=== PATIENT | female | born 1950 | race Caucasian/White ===

== ENCOUNTER 2018-01-30 13:12 | Emergency (ER) | payer MEDICARE, MEDICAID ==
[2018-01-30 14:01] LABS: #Lymphocytes 1.5 thou/uL (1.20-3.40); #Monocytes 0.7 thou/uL (0.11-0.59); #Neutrophils 5.2 thou/uL (1.40-6.50); %Basophils 0.4 % (0.0-1.0); %Eosinophils 0.5 % (0.0-10.0); %Lymphocytes 20.6 % (21.0-51.0); %Monocytes 8.8 % (0.0-10.0); %Neutrophils 69.8 % (42.0-75.0); Hemoglobin 12.8 g/dL (12.0-16.0); Mean Corpuscular HGB CONC 33.8 g/dL (32.0-36.0); Mean Corpuscular Hemoglobin 31.5 pg (27.0-31.0); Mean Corpuscular Volume 93.2 fL (78.0-98.0); Mean Platelet Volume 7.7 fL (7.4-10.4); Platelet Count 252 thou/uL (130-400); RBC Distribution Width 12.1 % (11.5-14.5); Red Blood Cell (RBC) Count 4.06 mill/uL (4.20-5.40); White Blood Cell (WBC) Count 7.4 thou/uL (4.8-10.8)
[2018-01-30 14:23] LABS: ALT (SGPT) 32 U/L (8-55); AST (SGOT) 30 U/L (5-34); Albumin 4.4 g/dL (3.4-4.8); Alkaline Phosphatase 109 U/L (40-150); Anion Gap 14 mmol/L (10-20); BUN (Urea Nitrogen) 9 mg/dL (9.8-20.1); Bilirubin, Total 0.6 mg/dL (0.2-1.2); Calc. Creatinine Clearance 0 mL/min (70-130); Calcium 9.9 mg/dL (7.8-10.44); Carbon Dioxide 31 mmol/L (23-31); Chloride 91 mmol/L (98-107); Estimated GFR-MDRD 70; Globulin 3.5 g/dL (2.4-3.5); Glucose 89 mg/dL (80-115); Protein, Total 7.9 g/dL (6.0-8.3); Sodium 133 mmol/L (136-145)
[2018-01-30 14:27] LABS: CKMB 0.5 ng/mL (0-6.6); Troponin I Less than 0.010 ng/mL (< 0.028)
[2018-01-30] MEDS ORDERED: Potassium Chloride 20 MEQ TAB ONE (15:11)
== END 2018-01-30 15:15 | disposition home or self-care (01) ==
LOC: ERS 13:12
DX: I10 Essential (primary) hypertension (principal); E78.5 Hyperlipidemia, unspecified; M10.9 Gout, unspecified; Z79.899 Other long term (current) drug therapy; Z79.82 Long term (current) use of aspirin
CPT/HCPCS: 80053; 82553; 84484; 85025; 93005

== ENCOUNTER 2018-03-30 00:25 | Observation (INO) | payer MEDICARE, MEDICAID ==
[2018-03-30] MEDS ORDERED: Bacitracin Zinc 1 Packet ONE (00:48)
[2018-03-30 01:18] LABS: #Basophils 0.1 thou/uL (0.0-0.2); #Eosinphils 0.1 thou/uL (0.0-0.7); #Lymphocytes 1.7 thou/uL (1.20-3.40); #Monocytes 0.8 thou/uL (0.11-0.59); #Neutrophils 6.6 thou/uL (1.40-6.50); %Basophils 1.4 % (0.0-1.0); %Eosinophils 0.7 % (0.0-10.0); %Lymphocytes 18.6 % (21.0-51.0); %Monocytes 8.3 % (0.0-10.0); Hemoglobin 12.3 g/dL (12.0-16.0); Mean Corpuscular HGB CONC 33.9 g/dL (32.0-36.0); Mean Corpuscular Hemoglobin 32.6 pg (27.0-31.0); Mean Platelet Volume 7.4 fL (7.4-10.4); Platelet Count 255 thou/uL (130-400); Red Blood Cell (RBC) Count 3.77 mill/uL (4.20-5.40); White Blood Cell (WBC) Count 9.3 thou/uL (4.8-10.8)
[2018-03-30 01:40] LABS: ALT (SGPT) 19 U/L (8-55); AST (SGOT) 17 U/L (5-34); Alkaline Phosphatase 96 U/L (40-150); Anion Gap 15 mmol/L (10-20); BUN (Urea Nitrogen) 23 mg/dL (9.8-20.1); Bilirubin, Total 0.4 mg/dL (0.2-1.2); CK (CPK) 54 U/L (29-168); Calc. Creatinine Clearance 0 mL/min (70-130); Calcium 9.2 mg/dL (7.8-10.44); Carbon Dioxide 26 mmol/L (23-31); Chloride 93 mmol/L (98-107); Estimated GFR-MDRD 65; Globulin 3.2 g/dL (2.4-3.5); Glucose 111 mg/dL (80-115); Potassium 3.2 mmol/L (3.5-5.1); Protein, Total 7.2 g/dL (6.0-8.3); Sodium 131 mmol/L (136-145)
[2018-03-30] MEDS ORDERED: Acetaminophen 500 MG TAB ONE (03:55)
[2018-03-30 04:14] VITALS: BMI 27.1
[2018-03-30] MEDS ORDERED: Ondansetron PF 4 MG/2 ML Vial IVP PRN (04:15)
[2018-03-30] MEDS ORDERED: Acetaminophen 325 MG TAB PO PRN ×3 (04:15→22:33)
[2018-03-30] MEDS ORDERED: Ondansetron ODT 4 MG TAB SL PRN (04:15)
[2018-03-30 04:26] LABS: Troponin I Less than 0.010 ng/mL (< 0.028)
[2018-03-30] MEDS ORDERED: Potassium Chloride 20 MEQ TAB PO SCH (04:45)
--- NOTE | 2018-03-30 05:46 | HP ---
PRIMARY CARE DOCTOR: The patient goes to [facility]. MAIL SORTER AND DELIVERY: Dr. Leavitt. CODE STATUS: Full code. TIME OF EVALUATION: 4 a.m. CHIEF COMPLAINT: Chest pain. HISTORY OF PRESENT ILLNESS: This is a 67-year-old female patient with past medical history of coronary artery disease with PA in 2008, two stent placement, hypertension, and gout, came to the hospital after having chest pain that was dull, was 4/10 with no clear triggers, no alleviating factors, radiated to the back; associated with nausea that started around 2 to 3 p.m. and lasted until the patient came to the hospital. She reported this feels the same as when she had a previous PA. REVIEW OF SYSTEMS: CONSTITUTIONAL: No fever, chills, or generalized weakness. RESPIRATORY: No cough, sputum production, or shortness of breath. CARDIOVASCULAR: The patient has chest pain. No palpitations. GASTROINTESTINAL: Nausea. No vomiting, diarrhea, or abdominal. DIAL SCREW ASSEMBLER: No dizziness, headache, or feeling lightheaded. GENITOURINARY: No burning on urination. EXTREMITIES: No leg swelling. All other systems were reviewed and negative except for the findings mentioned noted. PAST MEDICAL HISTORY: As mentioned in the HPI. FAMILY HISTORY: Reviewed and noncontributory for current presentation. SOCIAL HISTORY: The patient denies alcohol. No drugs. No smoking history. Lives at home. SURGICAL HISTORY: Hysterectomy, stent placement, pacemaker in 2017. PSYCHIATRIC HISTORY: No psych history. KNOWN ALLERGIES: To amlodipine, Celebrex, hydralazine, penicillin, streptomycin. REPORTED MEDICATIONS: 1. Aspirin. 2. Benicar. 3. Fish oil. 4. Lipitor. 5. Metoprolol. 6. Plavix. 7. . 8. Potassium. PHYSICAL EXAMINATION: VITAL SIGNS: On presentation, blood pressure 155/84 with heart rate 79, respiratory rate was 16, temperature 97.7, oxygen saturation was 95 on room air. GENERAL APPEARANCE: The patient is alert, oriented, not in acute distress. HEENT: Eyes; normal conjunctivae. Moist oral mucosa. Anicteric. No JVD. RESPIRATORY: Bilateral air entry. No rales. No wheezes. Symmetric expansion. CARDIOVASCULAR: Normal rate, regular rhythm. No murmurs. No gallops. No edema. ABDOMEN: Soft. Normal bowel sounds. MUSCULOSKELETAL: Baseline range of motion and strength. No tenderness. SKIN: Warm, intact. No pallor. No rash. No redness. Peripheral pulses are present. Capillary refill seems to intact. NEURO: No evidence of any new focal weakness. Baseline speech. Cranial nerves seem to be intact. PSYCH: The patient is in good mood. No anxiety. Oriented, optimal judgement. DIAGNOSTIC STUDIES: EKG was reviewed. The patient has a paced rhythm at a rate of 66, QT corrected 471. Chest x-ray was reviewed by myself. The patient has electronic pacemaker, wire seems to be in the right position. Normal mediastinum. No evidence of any significant cardiopulmonary process. No abnormalities. Labs were reviewed. The patient has white count 9.3, hemoglobin 12.3, MCV 96, platelet count 255. Chemistry; sodium 131, potassium 3.2, chloride 93, carbon dioxide was 26, anion gap 15, BUN 23, creatinine 0.8, GFR 65, glucose 111, calcium was 9.2. Total bilirubin 0.4, AST 17, ALT 19, alkaline phosphatase 96. CK 54, troponin less than 0.010. Serum total protein is 7.2, albumin 4.0, globulin 3.2, albumin globulin ratio is 1.3. ASSESSMENT AND PLAN: The patient will be placed in the hospital with following medical problems: 1. Chest pain, rule out acute coronary syndrome. The patient has a strong history. The patient follows with Dr. Leavitt. Might need a stress test in the morning if initial workup is negative. 2. We will trend troponins, monitor on tele. 3. Hypokalemia, we will replace electrolytes as needed. This is mild. 4. Hyponatremia. Sodium 131. This is mild, we will monitor electrolytes, we will replace as needed. 5. Hyperlipidemia, low-cholesterol diet is advised, reconcile home medications. 6. Uncontrolled blood pressure, systolic blood pressure 155, reconcile home medications, adjust treatment as needed. 7. Deep vein thrombosis prophylaxis. Job ID: [id number]
[2018-03-30 08:03] LABS: Troponin I Less than 0.010 ng/mL (< 0.028)
--- NOTE | 2018-03-30 08:43 | RAD ---
PORTABLE CHEST: Date: 03/30/18 PROVIDED CLINICAL HISTORY: Chest pain. FINDINGS: Comparison with 08/12/16. Cardiac and mediastinal silhouette is unchanged in appearance. Left subclavian cardiac pacing device is demonstrated with lead tips overlying expected locations of RA and RV. No focal consolidation, ple ural fluid, or pneumothorax apparent. IMPRESSION: No evidence for an acute cardiopulmonary process. POS: [facility]
[2018-03-30] MEDS ORDERED: CELERY PO SCH (09:00)
[2018-03-30] MEDS ORDERED: Non-Formulary Item 1 EACH (Glucosam/Chondr-Msm1/D3/C/Mang [Glucosamine Chondroitin Comple PO SCH (09:00)
[2018-03-30] MEDS ORDERED: [UNRECOGNIZED DRUG - OTHER] PO SCH (09:00)
[2018-03-30] MEDS ORDERED: GRAPE SEED PO SCH (09:00)
[2018-03-30] MEDS ORDERED: Aspirin 325 MG TAB PO SCH (09:00)
[2018-03-30] MEDS ORDERED: SOURCHERRY PO SCH (09:00)
[2018-03-30] MEDS ORDERED: Enoxaparin Sodium 40 MG/0.4 ML SYRINGE SC SCH (09:00)
[2018-03-30] MEDS: Metoprolol Tartrate 25 MG TAB PO SCH ×3 (09:21→20:40)
[2018-03-30] MEDS: Hydrochlorothiazide 25 MG TAB PO SCH (09:22)
[2018-03-30] MEDS: Fish Oil 1,000 MG CAP PO SCH (09:22)
[2018-03-30] MEDS: Clopidogrel Bisulfate 75 MG TAB PO SCH (09:23)
[2018-03-30] MEDS: Calcium Polycarbophil 625 MG TAB PO SCH (09:23)
[2018-03-30] MEDS ORDERED: ADENOSINE 60 MG/20 ML VIAL ONE (09:24)
--- NOTE | 2018-03-30 10:45 | PDOC.PN ---
- Subjective Encounter Start Date: 03/30/18 Encounter Start Time: 10:43 Subjective: Patient without any CP since receiving Nitro in ED. Feeling well in herself -: No complaints. Denies any n/v. No SOB. Reports dry cough. No hemoptysis. -: Has had sinus drainage issues recently. No fevers. Patient states her pain was in the center of her chest radiating through to her back. Same as pain she had with previous [place] 10 years ago. S/p 2 stents. Recent PPM placed 03/2017. She follows regularly with Dr. Leavitt. - Objective Resuscitation Status - Order Detail: 03/30/18 04:40 Resuscitation Status Routine Resuscitation Status: FULL: Full Resuscitation Vital Signs & Weight: Vital Signs (12 hours) Temp Pulse Resp BP Pulse Ox 03/30/18 07:18 97.7 F 60 16 138/73 99 03/30/18 04:17 97.7 F 60 20 159/76 H 99 Weight Weight 178 lb 4.8 oz I&O: 03/29/18 03/30/18 03/31/18 06:59 06:59 06:59 Intake Total 300 Balance 300 Result Diagrams: 03/30/18 01:06 03/30/18 01:06 Phys Exam - Physical Examination Constitutional: NAD HEENT: PERRLA, moist MMs, sclera anicteric, oral pharynx no lesions Neck: no nodes, supple, full ROM Respiratory: clear to auscultation bilateral Cardiovascular: RRR Gastrointestinal: soft, non-tender, no distention, positive bowel sounds Musculoskeletal: no edema, pulses present Neurological: non-focal, normal sensation, moves all 4 limbs Psychiatric: normal affect, A&O x 3 Skin: no rash, normal turgor Dx/Plan (1) Chest pain Code(s): R07.9 - CHEST PAIN, UNSPECIFIED Status: Resolved (2) CAD (coronary artery disease) Code(s): I25.10 - ATHSCL HEART DISEASE OF [place] CORONARY ARTERY W/O ANG PCTRS Status: Chronic (3) Dyslipidemia Code(s): E78.5 - HYPERLIPIDEMIA, UNSPECIFIED Status: Chronic (4) Hypothyroidism Code(s): E03.9 - HYPOTHYROIDISM, UNSPECIFIED Status: Chronic (5) Hypokalemia Code(s): E87.6 - HYPOKALEMIA Status: Acute - Plan cont current plan of care, DVT proph w/SCDs TNI x 3 negative. ECG - Paced rhythym, no ST changes. Stress test requested -: Potassium replaced. Monitor electrolytes -: NPO until after stress test, then can resume heart healthy diet. * . Review of Systems - Review of Systems Constitutional: negative: fever, chills, sweats, weakness, malaise ENT: negative: Ear Pain, Ear Discharge, Nose Pain, Nose Discharge, Nose Congestion, Mouth Pain, Mouth Swelling, Throat Pain, Throat Swelling, Other Respiratory: Cough, Dry. negative: Shortness of Breath, Hemoptysis, SOB with Excertion, Pleuritic Pain, Sputum, Wheezing Cardiovascular: negative: chest pain, palpitations, orthopnea, paroxysmal nocturnal dyspnea, edema, light headedness Gastrointestinal: negative: Nausea, Vomiting, Abdominal Pain, Diarrhea, Constipation, Melena, Hematochezia Genitourinary: negative: Dysuria, Frequency, Incontinence, Hematuria, Retention Musculoskeletal: negative: Neck Pain, Shoulder Pain, Arm Pain, Back Pain, Hand Pain, Leg Pain, Foot Pain Skin: negative: Rash, Lesions, Bruising Neurological: negative: Weakness - Medications/Allergies Allergies/Adverse Reactions: Allergies Allergy/AdvReac Type Severity Reaction Status Date / Time amlodipine besylate Allergy Mild Verified 03/30/18 04:25 [From Norvasc] celecoxib [From Celebrex] Allergy swells face Verified 03/30/18 04:25 Penicillins Allergy swelling/hi Verified 03/30/18 04:25 ves streptomycin Allergy Verified 03/30/18 04:25 hydralazine AdvReac Mild "makes BP Verified 03/30/18 04:25 and HR high" Medications: Current Medications Acetaminophen (Tylenol) 650 mg PO Q4H PRN PRN Reason: Headache/Fever or Pain Stop: 03/30/18 15:00 Alprazolam (Xanax) 0.25 mg PO BID PRN PRN Reason: Anxiety Aspirin (Aspirin) 325 mg PO DAILY [facility] Last Admin: 03/30/18 09:23 Dose: 325 mg Atorvastatin Calcium (Lipitor) 80 mg PO HS [facility] Calcium Polycarbophil (Fibercon) 625 mg PO DAILY [facility] Last Admin: 03/30/18 09:23 Dose: Not Given Clopidogrel Bisulfate (Plavix) 75 mg PO DAILY [facility] Last Admin: 03/30/18 09:23 Dose: 75 mg Enoxaparin Sodium (Lovenox) 40 mg SC 0900 [facility] Last Admin: 03/30/18 09:23 Dose: 40 mg Fish Oil (Fish Oil) 1,000 mg PO DAILY [facility] Last Admin: 03/30/18 09:22 Dose: 1,000 mg Hydrochlorothiazide (Hydrochlorothiazide) 12.5 mg PO DAILY [facility] Last Admin: 03/30/18 09:22 Dose: 12.5 mg Metoprolol Tartrate (Lopressor) 50 mg PO BID [facility] Last Admin: 03/30/18 09:21 Dose: Not Given Olmesartan (Benicar) 20 mg PO BID [facility] Last Admin: 03/30/18 09:23 Dose: 20 mg Ondansetron HCl (Zofran) 4 mg IVP Q6H PRN PRN Reason: Nausea/Vomiting Stop: 03/30/18 15:00 Ondansetron HCl (Zofran Odt) 4 mg SL Q6H PRN PRN Reason: Nausea/Vomiting Stop: 03/30/18 15:00
--- NOTE | 2018-03-30 14:59 | NM ---
MYOCARDIAL PERFUSION SCAN: Date: 03/30/18 PROVIDED CLINICAL HISTORY: Chest pain. RADIOPHARMACEUTICAL: 28 mCi technetium-99m labeled sestamibi IV at stress. 9.6 mCi technetium-99m labeled sestamibi IV at rest. FINDINGS: There is normal, homogeneous distribution of radiotracer throughout the left ventricular myocardium a t both stress and rest. Gated data demonstrate normal myocardial wall motion and thickening with calc ulated LVEF of 65%. TID is 1.1. IMPRESSION: No scintigraphic evidence for ischemia. POS: [facility]
--- NOTE | 2018-03-30 18:54 | CON ---
DATE OF CONSULT: 03/30/18 Patient is a 67-year-old woman who presents for evaluation of chest discomfort. The patient has previous history of coronary artery disease. Approximately ten years ago she suffered a myocardial infarction. She underwent PTCA and stent placement. The patient also has a history of bradycardia and has had placement of an electronic pacemaker. The patient states she was in her usual state of health when she once again developed mid sternal chest discomfort. This also radiated to her back. She states this is very similar to her discomfort that she had with her previous myocardial infarction. The patient presented to the Emergency Room. She received nitroglycerin tablets with resolution of her chest pain. The patient denies having any present chest discomfort. PAST MEDICAL HISTORY: 1. History of myocardial infarction. 2. Hypertension. 3. History of pacemaker placement. PAST SURGICAL HISTORY: , hysterectomy. SOCIAL HISTORY: She is a nonsmoker. FAMILY HISTORY: Positive family history of heart disease. ALLERGIES: Penicillin, Celebrex, Streptomycin, Hydralazine and Norvasc. . MEDICATIONS: Lipitor 80 q. day, aspirin 325 q. day, Metoprolol 50 b.i.d, Plavix 75 q. day, Benicar hydrochlorothiazide one tablet p.o. b.i.d. REVIEW OF SYSTEMS: Ten point system otherwise unremarkable. No history of easy bruising or bleeding. PHYSICAL EXAMINATION: GENERAL: This is a well developed obese woman with a blood pressure of 187/79. NECK: Showed no jugular venous distention. LUNGS: Clear to auscultation. HEART: Regular rate and rhythm. Normal S1 and S2. No murmurs. ABDOMEN: Nondistended. EXTREMITIES: Shows no edema. VASCULAR: Radial pulses are 2+. LABORATORY RESULTS: White blood count 9.3, hemoglobin 12.3, hematocrit 36.2, platelets 255 ,000. Sodium 131, potassium 3.2, chloride 93, bicarbonate 26, BUN 23, creatinine 0.87. Troponin less than 0.01. EKG revealed an electronic atrial pacemaker with No acute STT wave changes. IMPRESSION: 1. Unstable angina. 2. History of myocardial infarction. 3. Hypertension. 4. History of pacemaker placement. This patient presented with chest pain that was similar to her previous myocardial infarction. She states the chest pain resolved with nitroglycerine. The patient today underwent a stress that revealed no evidence of ischemia. Based on the patient's clinical history, I would recommend the patient be treated with Lovenox, aspirin and Plavix. We will follow this patient with you through her hospitalization. 1. MTDD
[2018-03-30] MEDS: ALPRAZolam 0.25 MG TAB PO PRN (20:40)
[2018-03-30] MEDS: Atorvastatin Calcium 40 MG TAB PO SCH (20:40)
[2018-03-30] MEDS ORDERED: cloNIDine 0.2 MG TAB PO SCH ×2 (22:30→22:45)
[2018-03-31 04:49] LABS: #Basophils 0.1 thou/uL (0.0-0.2); #Eosinphils 0.1 thou/uL (0.0-0.7); #Lymphocytes 2.2 thou/uL (1.20-3.40); #Monocytes 0.7 thou/uL (0.11-0.59); #Neutrophils 2.3 thou/uL (1.40-6.50); %Basophils 1.7 % (0.0-1.0); %Eosinophils 1.6 % (0.0-10.0); %Lymphocytes 40.6 % (21.0-51.0); %Monocytes 13.2 % (0.0-10.0); Hemoglobin 12.9 g/dL (12.0-16.0); Mean Corpuscular HGB CONC 33.5 g/dL (32.0-36.0); Mean Corpuscular Hemoglobin 32.1 pg (27.0-31.0); Mean Corpuscular Volume 95.7 fL (78.0-98.0); Mean Platelet Volume 7.8 fL (7.4-10.4); Platelet Count 257 thou/uL (130-400); Red Blood Cell (RBC) Count 4.02 mill/uL (4.20-5.40); White Blood Cell (WBC) Count 5.4 thou/uL (4.8-10.8)
[2018-03-31 05:11] LABS: Anion Gap 15 mmol/L (10-20); BUN (Urea Nitrogen) 18 mg/dL (9.8-20.1); Calc. Creatinine Clearance 84 mL/min (70-130); Calcium 9.3 mg/dL (7.8-10.44); Carbon Dioxide 23 mmol/L (23-31); Cardiac Risk 3.2 (Less than 4.5); Chloride 97 mmol/L (98-107); Cholesterol 136 mg/dl (< 200 Desired); Estimated GFR-MDRD 70; Glucose 111 mg/dL (80-115); HDL Cholesterol 42 mg/dL (>60 Neg Risk); LDL Cholesterol, Calculated 68 mg/dL; Potassium 3.4 mmol/L (3.5-5.1); Sodium 132 mmol/L (136-145); Triglycerides 131 mg/dL (Less than 150)
--- NOTE | 2018-03-31 08:33 | PDOC.PN ---
- Subjective Encounter Start Date: 03/31/18 Encounter Start Time: 08:30 Subjective: Patient feeling well. Denies any complaints. No CP/SOB. Elevated BP last -: night (192/99) with mild frontal CATHERINE 4/10 in severity. States she felt -: stressed after seen by Dr. Alvarez due to possibility of cath tomorrow. She also states she did not receive her usual BP meds after coming back from the stress test. Denies any associated blurred vision or dizziness. No further headaches. She was able to get some rest once BP under control. Has no complaints at this present time. - Objective Resuscitation Status - Order Detail: 03/30/18 04:40 Resuscitation Status Routine Resuscitation Status: FULL: Full Resuscitation Vital Signs & Weight: Vital Signs (12 hours) Temp Pulse Resp BP BP Pulse Ox 03/31/18 07:50 98.1 F 78 16 122/60 95 03/31/18 02:15 98.1 F 65 14 112/66 94 L 03/30/18 22:47 192/99 H 03/30/18 22:45 66 192/99 H Weight Admit Weight 178 lb 4.8 oz Weight 178 lb 4.8 oz I&O: 03/30/18 03/31/18 04/01/18 06:59 06:59 06:59 Intake Total 300 1520 Balance 300 1520 Result Diagrams: 03/31/18 04:30 03/31/18 04:30 Phys Exam - Physical Examination Constitutional: NAD HEENT: PERRLA, moist MMs, oral pharynx no lesions Neck: supple, full ROM Respiratory: no wheezing, no rales, clear to auscultation bilateral Cardiovascular: RRR Gastrointestinal: soft, non-tender, no distention, positive bowel sounds Musculoskeletal: no edema, pulses present Neurological: normal sensation, moves all 4 limbs Psychiatric: normal affect, A&O x 3 Skin: no rash Dx/Plan (1) Hyponatremia Code(s): E87.1 - HYPO-OSMOLALITY AND HYPONATREMIA Status: Acute (2) CAD (coronary artery disease) Code(s): I25.10 - ATHSCL HEART DISEASE OF [place] CORONARY ARTERY W/O ANG PCTRS Status: Chronic (3) Dyslipidemia Code(s): E78.5 - HYPERLIPIDEMIA, UNSPECIFIED Status: Chronic (4) Hypothyroidism Code(s): E03.9 - HYPOTHYROIDISM, UNSPECIFIED Status: Chronic (5) Hypokalemia Code(s): E87.6 - HYPOKALEMIA Status: Acute (6) Pacemaker Code(s): Z95.0 - PRESENCE OF CARDIAC PACEMAKER Status: Chronic - Plan cont current plan of care, DVT proph w/lovenox, DVT proph w/SCDs Per patient, for possible Catheterization on Sunday. -: Awaiting Cardio review/recommendations. -: Na+ 132, check serum osmolality -: K+ 3.4, replace by mouth -: BP meds resumed, monitor BP * . pt seen and examined agree with plan. vs stable lungs: clear on auscultation cv: s1 s2 present a/p chest pain, stress test negative however given her similarity of cp from previous [place] cardio recommended possible cath. Review of Systems - Review of Systems Constitutional: negative: fever, chills, sweats, weakness, malaise Eyes: negative: Pain, Vision Change ENT: negative: Throat Pain, Throat Swelling Respiratory: negative: Cough, Dry, Shortness of Breath, Hemoptysis, SOB with Excertion, Pleuritic Pain, Sputum, Wheezing Cardiovascular: negative: chest pain, palpitations, orthopnea, paroxysmal nocturnal dyspnea, edema, light headedness Gastrointestinal: negative: Nausea, Vomiting, Abdominal Pain, Diarrhea, Constipation, Melena, Hematochezia Genitourinary: negative: Dysuria, Frequency, Incontinence, Hematuria, Retention Skin: negative: Rash, Lesions Neurological: negative: Weakness, Numbness, Incoordination, Change in Speech, Confusion - Medications/Allergies Allergies/Adverse Reactions: Allergies Allergy/AdvReac Type Severity Reaction Status Date / Time amlodipine besylate Allergy Mild Verified 03/30/18 04:25 [From Norvasc] celecoxib [From Celebrex] Allergy swells face Verified 03/30/18 04:25 Penicillins Allergy swelling/hi Verified 03/30/18 04:25 ves streptomycin Allergy Verified 03/30/18 04:25 hydralazine AdvReac Mild "makes BP Verified 03/30/18 04:25 and HR high" Medications: Current Medications Acetaminophen (Tylenol) 650 mg PO Q4H PRN PRN Reason: Headache/Fever or Pain Last Admin: 03/30/18 22:47 Dose: 650 mg Acetaminophen (Tylenol) 650 mg PO Q4H PRN PRN Reason: Headache/Fever or Pain Alprazolam (Xanax) 0.25 mg PO BID PRN PRN Reason: Anxiety Last Admin: 03/30/18 20:40 Dose: 0.25 mg Aspirin (Aspirin Chewable) 81 mg PO DAILY [facility] Atorvastatin Calcium (Lipitor) 80 mg PO HS [facility] Last Admin: 03/30/18 20:40 Dose: 80 mg Calcium Polycarbophil (Fibercon) 625 mg PO DAILY [facility] Last Admin: 03/30/18 09:23 Dose: Not Given Clonidine (Catapres) 0.2 mg PO BID [facility] Clopidogrel Bisulfate (Plavix) 75 mg PO DAILY [facility] Last Admin: 03/30/18 09:23 Dose: 75 mg Enoxaparin Sodium (Lovenox) 80 mg SC 0900 [facility] Fish Oil (Fish Oil) 1,000 mg PO DAILY [facility] Last Admin: 03/30/18 09:22 Dose: 1,000 mg Hydrochlorothiazide (Hydrochlorothiazide) 12.5 mg PO DAILY [facility] Last Admin: 03/30/18 09:22 Dose: 12.5 mg Metoprolol Tartrate (Lopressor) 50 mg PO BID [facility] Last Admin: 03/30/18 20:40 Dose: 50 mg Olmesartan (Benicar) 20 mg PO BID [facility] Last Admin: 03/30/18 20:40 Dose: 20 mg
[2018-03-31] MEDS ORDERED: Potassium Chloride 20 MEQ TAB PO SCH (08:45)
[2018-03-31] MEDS ORDERED: Enoxaparin Sodium 80 MG/0.8 ML SYRINGE SC SCH (09:00)
[2018-03-31] MEDS ORDERED: cloNIDine 0.2 MG TAB PO SCH (09:00)
[2018-03-31] MEDS: Fish Oil 1,000 MG CAP PO SCH (09:45)
[2018-03-31] MEDS: Metoprolol Tartrate 25 MG TAB PO SCH ×2 (09:45→21:15)
[2018-03-31] MEDS: Clopidogrel Bisulfate 75 MG TAB PO SCH (09:45)
[2018-03-31] MEDS: Hydrochlorothiazide 25 MG TAB PO SCH (09:46)
[2018-03-31] MEDS: Calcium Polycarbophil 625 MG TAB PO SCH (09:46)
[2018-03-31] MEDS: cloNIDine 0.2 MG TAB PO SCH ×2 (09:46→21:14)
[2018-03-31] MEDS: Atorvastatin Calcium 40 MG TAB PO SCH (21:13)
[2018-03-31] MEDS: ALPRAZolam 0.25 MG TAB PO PRN (21:13)
[2018-03-31] MEDS ORDERED: Hydrochlorothiazide 25 MG TAB PO SCH (23:45)
[2018-04-01] MEDS ORDERED: Hydrochlorothiazide 25 MG TAB PO SCH (09:00)
[2018-04-01] MEDS: Metoprolol Tartrate 25 MG TAB PO SCH ×2 (11:01→12:21)
[2018-04-01] MEDS: Fish Oil 1,000 MG CAP PO SCH (11:01)
[2018-04-01] MEDS: cloNIDine 0.2 MG TAB PO SCH ×2 (11:01→12:20)
[2018-04-01] MEDS: Calcium Polycarbophil 625 MG TAB PO SCH (11:01)
[2018-04-01] MEDS: Clopidogrel Bisulfate 75 MG TAB PO SCH ×2 (11:01→12:21)
[2018-04-01 12:10] VITALS: BP 175/78; TEMP 97.6
--- NOTE | 2018-04-01 12:38 | PDOC.CTH ---
Cardiology Progress Note - Subjective The pt seen and examined. No overnight events. No cardiac complaints. - Objective Vital Signs Temp Pulse Resp BP Pulse Ox 04/01/18 12:01 97.6 F 68 16 175/78 H 100 04/01/18 07:37 98.4 F 69 16 124/63 95 04/01/18 03:08 97.9 F 66 18 124/60 95 Admit Weight 178 lb 4.8 oz Weight 163 lb 9.6 oz 03/31/18 04/01/18 04/02/18 06:59 06:59 06:59 Intake Total 1520 1920 Balance 1520 1920 - Physical Examination General/Neuro: alert & oriented x3 Neck: no JVD present Lungs: CTA Heart: RRR Abdomen: soft Extremities: other: (No edema) - Telemetry Telemetry Rhythm: SR - Labs Result Diagrams: 03/31/18 04:30 03/31/18 04:30 Troponin/CKMB Troponin I Less than 0.010 ng/mL (< 0.028) 03/30/18 07:14 - Assessment/Plan 1. CAD with hx of stent to OM2 and Lx Cx in 2008 - Stress test is normal; however, complained of achenes to MS area which is similar symptoms she had in 2009. Plan for LHC today by Dr Leavitt. on Plavix, ASA, Metoprolol, and Lipitor. 2. HTN - stable 3. Hyperlipidemia - on Statin 4. PM placement - stable 5. Hypothyroidism - managed by PCP KELLY mott * The procedure and the risk of LHC was explained to the pt; Included, but not limit to: infection, hemorrhage, CVA, [place], anaphylactic reaction to Iodine, Renal insufficiency, and possible . She voiced understanding and agreed to undergo LHC today. Review of Systems - Review of Systems Constitutional: reports: no symptoms reported EENTM: reports: no symptoms reported Respiratory: reports: no symptoms reported Cardiac (ROS): reports: no symptoms reported ABD/GI: reports: no symptoms reported : reports: no symptoms reported Musculoskeletal: reports: no symptoms reported Skin: reports: no symptoms reported
[2018-04-01] MEDS ORDERED: Communication Order-Pharmacy FS SCH (12:45)
--- NOTE | 2018-04-01 14:32 | PDOC.PN ---
- Subjective Encounter Start Date: 04/01/18 Encounter Start Time: 14:30 Patient lying in bed, reports feeling better. No chest pain, shortness of breath or palpitation. Cardiology planning [facility] today. - Objective Resuscitation Status - Order Detail: 03/30/18 04:40 Resuscitation Status Routine Resuscitation Status: FULL: Full Resuscitation MAR Reviewed: Yes Vital Signs & Weight: Vital Signs (12 hours) Temp Pulse Resp BP Pulse Ox 04/01/18 12:01 97.6 F 68 16 175/78 H 100 04/01/18 07:37 98.4 F 69 16 124/63 95 04/01/18 03:08 97.9 F 66 18 124/60 95 Weight Admit Weight 178 lb 4.8 oz Weight 163 lb 9.6 oz I&O: 03/31/18 04/01/18 04/02/18 06:59 06:59 06:59 Intake Total 1520 1920 Balance 1520 1920 Result Diagrams: 03/31/18 04:30 03/31/18 04:30 Radiology Reviewed by me: Yes Phys Exam - Physical Examination Constitutional: NAD HEENT: PERRLA, moist MMs, oral pharynx no lesions Neck: no nodes, no JVD, supple, full ROM Respiratory: no wheezing, no rales, no rhonchi, clear to auscultation bilateral Cardiovascular: RRR, no significant murmur, no rub Gastrointestinal: soft, non-tender, no distention, positive bowel sounds Musculoskeletal: no edema, pulses present Neurological: non-focal, normal sensation, moves all 4 limbs Lymphatic: no nodes Psychiatric: normal affect, A&O x 3 Skin: no rash, normal turgor, cap refill <2 seconds Dx/Plan (1) CAD (coronary artery disease) Code(s): I25.10 - ATHSCL HEART DISEASE OF [place] CORONARY ARTERY W/O ANG PCTRS Status: Chronic (2) Dyslipidemia Code(s): E78.5 - HYPERLIPIDEMIA, UNSPECIFIED Status: Chronic (3) Hypothyroidism Code(s): E03.9 - HYPOTHYROIDISM, UNSPECIFIED Status: Chronic (4) Chest pain Code(s): R07.9 - CHEST PAIN, UNSPECIFIED Status: Resolved - Plan cont current plan of care * Continue medical management including aspirin, plavix, statin and metoprolol. * Cardiology planning [facility] today * further management pending heart cath results.
[2018-04-01] MEDS ORDERED: Heparin 10,000 UNITS/1 ML VIAL ONE (14:40)
[2018-04-01] MEDS ORDERED: Nitroglycerin 100MG/250ML BOT 250 ML ONE (14:40)
[2018-04-01] MEDS: ALPRAZolam 0.25 MG TAB PO PRN (14:47)
[2018-04-01] MEDS ORDERED: Verapamil 5 MG/2 ML VIAL ONE (14:47)
[2018-04-01] MEDS ORDERED: Iopamidol 370 76% 100 ML VIAL ONE (15:07)
[2018-04-01] MEDS ORDERED: Fentanyl 100 MCG/2 ML VIAL ONE (15:08)
[2018-04-01] MEDS ORDERED: Midazolam HCl 2 mg/2 ml Vial ONE (15:08)
[2018-04-01] MEDS ORDERED: Sodium Chloride 0.9% 200 ML IV PRN (16:20)
[2018-04-01] MEDS ORDERED: Nitroglycerin 0.4 MG TAB (25 Tab Bottle) SL PRN (16:20)
[2018-04-01] MEDS ORDERED: Acetaminophen/Codeine 30-300mg Tablet PO PRN ×2 (16:20)
[2018-04-01] MEDS ORDERED: traMADol HCl 50 MG TAB PO PRN (16:20)
== END 2018-04-01 19:59 | disposition home or self-care (01) ==
LOC: ERS 00:25 → 2SW 03:00
PROVIDERS: ADMIT Hospitalist; ATTEND Internal Medicine Cardiovascular Disease
PROC: 4A023N7 Measurement of Cardiac Sampling and Pressure, Left Heart, Percutaneous Approach (ICD-10-PCS; principal; 2018-03-30)
PROC: B2111ZZ Fluoroscopy of Multiple Coronary Arteries using Low Osmolar Contrast (ICD-10-PCS; 2018-03-30)
DX: R07.9 Chest pain, unspecified (principal); I25.110 Atherosclerotic heart disease of native coronary artery with unstable angina pectoris; I25.2 Old myocardial infarction; I10 Essential (primary) hypertension; E87.6 Hypokalemia; E87.1 Hypo-osmolality and hyponatremia; E78.5 Hyperlipidemia, unspecified; E03.9 Hypothyroidism, unspecified; M10.9 Gout, unspecified; Z95.5 Presence of coronary angioplasty implant and graft; Z95.0 Presence of cardiac pacemaker; Z90.710 Acquired absence of both cervix and uterus; Z88.6 Allergy status to analgesic agent; Z88.8 Allergy status to other drugs, medicaments and biological substances; Z88.0 Allergy status to penicillin; Z88.1 Allergy status to other antibiotic agents; Z79.82 Long term (current) use of aspirin; Z79.02 Long term (current) use of antithrombotics/antiplatelets; Z79.899 Other long term (current) drug therapy
CPT/HCPCS: 71045; 78452; 80048; 80053; 80061; 82550; 83930; 84484 ×2; 85025 ×2; 93005; 93017; 93458; 96372 ×2; 99285; A9500; C1769; G0378 ×3; 36415; J0153; J1644; J1650; J2250; J3010

== ENCOUNTER 2018-07-13 06:01 | Observation (INO) | payer MEDICARE, MEDICAID ==
[2018-07-13] MEDS ORDERED: Nitroglycerin 2% Ointment 1 INCH/1 GM Packet ONE (06:34)
[2018-07-13] MEDS ORDERED: ALPRAZolam 0.25 MG TAB PO PRN (08:57)
[2018-07-13] MEDS ORDERED: Clopidogrel Bisulfate 75 MG TAB PO SCH (09:00)
[2018-07-13] MEDS ORDERED: Famotidine 20 MG TAB PO SCH (09:00)
[2018-07-13] MEDS ORDERED: Ondansetron ODT 4 MG TAB PO PRN (09:00)
[2018-07-13] MEDS ORDERED: cloNIDine 0.2 MG TAB PO SCH (09:00)
[2018-07-13] MEDS ORDERED: Enoxaparin Sodium 40 MG/0.4 ML SYRINGE SC SCH (09:00)
[2018-07-13] MEDS ORDERED: Metoprolol Tartrate 50 MG TAB PO SCH (09:00)
[2018-07-13] MEDS ORDERED: Metoprolol Tartrate 25 MG TAB PO SCH (09:00)
[2018-07-13] MEDS ORDERED: Aspirin 325 MG TAB PO SCH (09:00)
[2018-07-13] MEDS ORDERED: Ondansetron PF 4 MG/2 ML Vial IVP PRN (09:00)
[2018-07-13] MEDS ORDERED: Acetaminophen 325 MG TAB PO PRN (09:00)
[2018-07-13 09:59] LABS: Troponin I Less than 0.010 ng/mL (< 0.028)
[2018-07-13 10:40] VITALS: BMI 25.0
[2018-07-13 10:53] VITALS: TEMP 96.4
[2018-07-13 13:16] LABS: Potassium 3.6 mmol/L (3.5-5.1)
[2018-07-13 13:25] LABS: Troponin I Less than 0.010 ng/mL (< 0.028)
[2018-07-13 13:28] VITALS: BP 116/66
[2018-07-13] MEDS ORDERED: Non-Formulary Item 1 EACH (Atorvastatin Calcium [Lipitor] 80 MG) PO SCH (21:00)
[2018-07-13] MEDS ORDERED: Atorvastatin Calcium 40 MG TAB PO SCH (21:00)
== END 2018-07-13 16:47 | disposition home or self-care (01) ==
LOC: ERS 06:01 → 2SW 08:07
PROVIDERS: ADMIT Internal Medicine; ATTEND Internal Medicine
DX: I16.0 Hypertensive urgency (principal); E87.6 Hypokalemia; Z79.02 Long term (current) use of antithrombotics/antiplatelets; Z79.82 Long term (current) use of aspirin; Z79.899 Other long term (current) drug therapy; Z88.0 Allergy status to penicillin; Z88.8 Allergy status to other drugs, medicaments and biological substances
CPT/HCPCS: 83735; 84132; 84484; 93005; 96372; 97139; 99285; G0378; 36415; 93010; J1650

== ENCOUNTER 2020-09-10 12:22 | Outpatient (CLI) | payer MEDICARE, MEDICAID | END 2020-09-10 12:23 | disposition home or self-care (01) | LOC: BICMAMMO 12:22 | PROVIDERS: ATTEND Nurse Practitioner Family | DX: Z12.31 Encounter for screening mammogram for malignant neoplasm of breast (principal) | CPT/HCPCS: 77063; 77067 ==

== ENCOUNTER 2020-12-18 11:23 | Observation (INO) | payer MEDICARE, OTHER ==
[2020-12-18 11:41] VITALS: BMI 22.7
[2020-12-18] MEDS ORDERED: Senokot S 8.6-50 MG TAB PO PRN (13:29)
[2020-12-18] MEDS ORDERED: cloNIDine 0.2 MG TAB PO PRN ×2 (13:31→14:07)
[2020-12-18] MEDS ORDERED: ALPRAZolam 0.25 MG TAB PO PRN (13:31)
[2020-12-18] MEDS ORDERED: diphenhydrAMINE 25 MG CAP PO PRN (13:31)
[2020-12-18] MEDS ORDERED: Melatonin 3 MG TAB PO PRN (13:41)
[2020-12-18] MEDS: Acetaminophen 325 MG TAB PO PRN ×2 (14:45→21:19)
[2020-12-18] MEDS: Potassium Chloride 20 MEQ TAB PO SCH (17:09)
[2020-12-18] MEDS ORDERED: Atorvastatin Calcium 40 MG TAB PO SCH (21:00)
[2020-12-18] MEDS: Calcium Polycarbophil 625 MG TAB PO SCH (21:18)
[2020-12-18] MEDS: Famotidine 20 MG TAB PO SCH (21:18)
[2020-12-18] MEDS: Metoprolol Tartrate 50 MG TAB PO SCH (21:19)
[2020-12-19 05:47] LABS: #Basophils 0.1 thou/uL (0.0-0.2); #Eosinphils 0.1 thou/uL (0.0-0.7); #Lymphocytes 1.7 thou/uL (1.20-3.40); #Monocytes 0.5 thou/uL (0.11-0.59); #Neutrophils 2.2 thou/uL (1.40-6.50); %Basophils 1.3 % (0.0-1.0); %Eosinophils 1.8 % (0.0-10.0); %Lymphocytes 36.1 % (21.0-51.0); %Monocytes 11.9 % (0.0-10.0); Hemoglobin 11.9 g/dL (12.0-16.0); Mean Corpuscular HGB CONC 32.6 g/dL (32.0-36.0); Mean Corpuscular Volume 98.2 fL (78.0-98.0); Mean Platelet Volume 8.2 fL (7.4-10.4); Platelet Count 222 thou/uL (130-400); RBC Distribution Width 11.9 % (11.5-14.5); Red Blood Cell (RBC) Count 3.71 mill/uL (4.20-5.40); White Blood Cell (WBC) Count 4.6 thou/uL (4.8-10.8)
[2020-12-19 05:57] LABS: Anion Gap 15 mmol/L (10-20); BUN (Urea Nitrogen) 18 mg/dL (9.8-20.1); Calc. Creatinine Clearance 67 mL/min (70-130); Calcium 9.3 mg/dL (7.8-10.44); Carbon Dioxide 23 mmol/L (23-31); Chloride 108 mmol/L (98-107); Glucose 104 mg/dL (83-110); Potassium 3.3 mmol/L (3.5-5.1); Sodium 143 mmol/L (136-145)
[2020-12-19] MEDS ORDERED: Aspirin 325 MG TAB PO SCH (09:00)
[2020-12-19] MEDS ORDERED: Clopidogrel Bisulfate 75 MG TAB PO SCH (09:00)
[2020-12-19] MEDS ORDERED: Enoxaparin Sodium 40 MG/0.4 ML SYRINGE SC SCH (09:00)
[2020-12-19] MEDS ORDERED: ADENOSINE 60 MG/20 ML VIAL ONE (11:26)
[2020-12-19 12:22] VITALS: BP 167/79; TEMP 97.8
[2020-12-19] MEDS: Famotidine 20 MG TAB PO SCH (12:23)
[2020-12-19] MEDS: Calcium Polycarbophil 625 MG TAB PO SCH (12:23)
[2020-12-19] MEDS: Metoprolol Tartrate 50 MG TAB PO SCH (12:24)
[2020-12-19] MEDS: Potassium Chloride 20 MEQ TAB PO SCH (12:24)
== END 2020-12-19 15:50 | disposition home or self-care (01) ==
LOC: 2NO 11:23
PROVIDERS: ADMIT Internal Medicine; ATTEND Nurse Practitioner Family
DX: R07.89 Other chest pain (principal); E87.6 Hypokalemia; I10 Essential (primary) hypertension; E78.5 Hyperlipidemia, unspecified; R00.1 Bradycardia, unspecified; I44.7 Left bundle-branch block, unspecified; I25.10 Atherosclerotic heart disease of native coronary artery without angina pectoris; Z79.02 Long term (current) use of antithrombotics/antiplatelets; Z79.82 Long term (current) use of aspirin; Z79.899 Other long term (current) drug therapy; Z88.0 Allergy status to penicillin; Z88.1 Allergy status to other antibiotic agents; Z88.6 Allergy status to analgesic agent; Z88.8 Allergy status to other drugs, medicaments and biological substances; Z95.0 Presence of cardiac pacemaker; Z95.5 Presence of coronary angioplasty implant and graft
CPT/HCPCS: 76705; 78452; 80048; 83735; 84443; 85025; 93017; A9500; 36415; 96372; G0378; J0153; J1650

== ENCOUNTER 2021-08-21 18:22 | Emergency (ER) | payer MEDICARE, OTHER ==
[2021-08-21 19:01] LABS: #Basophils 0.1 thou/uL (0.0-0.2); #Lymphocytes 1.4 thou/uL (1.20-3.40); #Monocytes 0.5 thou/uL (0.11-0.59); #Neutrophils 4.3 thou/uL (1.40-6.50); %Eosinophils 0.5 % (0.0-10.0); %Lymphocytes 22.4 % (21.0-51.0); %Monocytes 8.5 % (0.0-10.0); %Neutrophils 67.7 % (42.0-75.0); Mean Corpuscular HGB CONC 32.9 g/dL (32.0-36.0); Mean Platelet Volume 7.4 fL (7.4-10.4); Platelet Count 234 thou/uL (130-400); RBC Distribution Width 12.1 % (11.5-14.5); Red Blood Cell (RBC) Count 3.62 mill/uL (4.20-5.40); White Blood Cell (WBC) Count 6.3 thou/uL (4.8-10.8)
[2021-08-21 19:24] LABS: ALT (SGPT) 14 U/L (8-55); AST (SGOT) 20 U/L (5-34); Albumin 4.4 g/dL (3.4-4.8); Alkaline Phosphatase 56 U/L (40-110); Anion Gap 16 mmol/L (10-20); BUN (Urea Nitrogen) 21 mg/dL (9.8-20.1); Bilirubin, Total 0.4 mg/dL (0.2-1.2); Calc. Creatinine Clearance 0 mL/min (70-130); Calcium 9.6 mg/dL (7.8-10.44); Carbon Dioxide 21 mmol/L (23-31); Chloride 104 mmol/L (98-107); Globulin 3.1 g/dL (2.4-3.5); Glucose 87 mg/dL (83-110); Potassium 4.5 mmol/L (3.5-5.1); Protein, Total 7.5 g/dL (5.8-8.1); Sodium 136 mmol/L (136-145)
== END 2021-08-21 20:00 | disposition home or self-care (01) ==
LOC: ERS 18:22
DX: I49.3 Ventricular premature depolarization (principal); N17.9 Acute kidney failure, unspecified; I25.2 Old myocardial infarction; E78.5 Hyperlipidemia, unspecified; E78.00 Pure hypercholesterolemia, unspecified; I10 Essential (primary) hypertension; M10.9 Gout, unspecified; E11.9 Type 2 diabetes mellitus without complications; Z79.899 Other long term (current) drug therapy; Z79.82 Long term (current) use of aspirin
CPT/HCPCS: 36415; 71045; 80053; 84484; 85025; 93005

== ENCOUNTER 2022-06-15 13:29 | Outpatient (CLI) | payer OTHER | END 2022-06-15 13:30 | disposition home or self-care (01) | LOC: CT 13:29 | PROVIDERS: ATTEND Specialist | DX: D37.032 Neoplasm of uncertain behavior of the submandibular salivary glands (principal); E07.89 Other specified disorders of thyroid; K11.8 Other diseases of salivary glands | CPT/HCPCS: 70491; 82565 ==

== ENCOUNTER 2023-04-13 13:16 | Outpatient (CLI) | payer OTHER | END 2023-04-13 13:17 | disposition home or self-care (01) | LOC: BICMAMMO 13:16 | PROVIDERS: ATTEND Physician Assistant | DX: N63.12 Unspecified lump in the right breast, upper inner quadrant (principal); N63.21 Unspecified lump in the left breast, upper outer quadrant | CPT/HCPCS: 76642; 77066; G0279 ==

== ENCOUNTER → 2023-04-24 | Day surgery (SDC) | payer OTHER | LOC: BICULT 11:46 | PROVIDERS: ATTEND Physician Assistant | PROC: 0H9V3ZX Drainage of Bilateral Breast, Percutaneous Approach, Diagnostic (ICD-10-PCS; principal; 2023-04-24) | PROC: 07B53ZX Excision of Right Axillary Lymphatic, Percutaneous Approach, Diagnostic (ICD-10-PCS; 2023-04-24) | DX: C50.211 Malignant neoplasm of upper-inner quadrant of right female breast (principal); Z17.0 Estrogen receptor positive status [ER+] | CPT/HCPCS: 19083; 19084; 38505; 88305; 88361; 88374 ==

== ENCOUNTER 2023-04-25 15:28 | Emergency (ER) | payer OTHER ==
[2023-04-25 16:34] LABS: #Eosinphils 0.1 thou/uL (0.0-0.7); #Monocytes 0.6 thou/uL (0.11-0.59); #Neutrophils 2.7 thou/uL (1.40-6.50); %Basophils 0.4 % (0.0-1.0); %Eosinophils 1.1 % (0.0-10.0); %Lymphocytes 29.1 % (21.0-51.0); Hematocrit 34.9 % (36.0-47.0); Hemoglobin 11.7 g/dL (12.0-16.0); Mean Corpuscular HGB CONC 33.5 g/dL (32.0-36.0); Mean Corpuscular Hemoglobin 31.8 pg (27.0-31.0); Mean Corpuscular Volume 94.8 fl (78.0-98.0); Platelet Count 215 10x3/uL (130-400); RBC Distribution Width 12.5 % (11.5-14.5); Red Blood Cell (RBC) Count 3.68 mill/uL (4.20-5.40); White Blood Cell (WBC) Count 4.8 10x3/uL (4.8-10.8)
[2023-04-25 16:38] LABS: Bacteria/HPF None Seen HPF (None Seen); Bilirubin Negative (Negative); Blood, Urine Negative (Negative); CAUTI Indications for Culture Dysuria,urgency,freq; Clarity Clear (Clear); Glucose, Urine (Dipstick) Normal (Negative); Ketone, Urine Negative (Negative); Leukocyte Negative Leu/uL (Negative); Nitrite Negative (Negative); Protein, Urine (Dipstick) Negative (Neg-Trace); RBC/HPF 0-3 HPF (0-3); Specific Gravity, Urine 1.012 (1.002-1.036); Squamous Epithelial 0-3 HPF (0-3); Urobilinogen Normal mg/dL (Less than 2); WBC/HPF 0-3 HPF (0-3)
[2023-04-25 16:40] LABS: Urine Culture Reflex No No
[2023-04-25 16:57] LABS: ALT (SGPT) 11 U/L (8-55); AST (SGOT) 18 U/L (5-34); Albumin 4.2 g/dL (3.4-4.8); Alkaline Phosphatase 60 U/L (40-110); Anion Gap 13 mmol/L (10-20); BUN (Urea Nitrogen) 29 mg/dL (9.8-20.1); Bilirubin, Total 0.3 mg/dL (0.2-1.2); Calc. Creatinine Clearance 0 mL/min (70-130); Carbon Dioxide 29 mmol/L (23-31); Chloride 99 mmol/L (98-107); Estimated GFR 45; Globulin 3.2 g/dL (2.4-3.5); Glucose 110 mg/dL (83-110); Magnesium 1.8 mg/dL (1.6-2.6); Potassium 3.3 mmol/L (3.5-5.1); Protein, Total 7.4 g/dL (5.8-8.1); Sodium 138 mmol/L (136-145)
[2023-04-25 17:02] LABS: Troponin I Less than 0.010 ng/mL (< 0.028)
[2023-04-25 17:14] LABS: Prothrombin Time 13.6 sec (12.0-14.7)
[2023-04-25 17:15] LABS: PTT 23.4 sec (22.9-36.1)
[2023-04-25 17:17] LABS: D-Dimer Test 0.39 mcg/mL (0.27-0.43)
[2023-04-25 18:42] LABS: SARS-CoV-2 NAA Rapid Test Not Detected (NotDetected)
[2023-04-25 19:06] LABS: Troponin I Less than 0.010 ng/mL (< 0.028)
[2023-04-25] MEDS ORDERED: cloNIDine 0.1 MG TAB ONE (19:46)
[2023-04-25] MEDS ORDERED: Metoprolol Tartrate 25 MG TAB ONE (19:46)
[2023-04-25] MEDS ORDERED: Metoprolol Tartrate 50 MG TAB ONE (19:49)
== END 2023-04-25 20:34 | disposition home or self-care (01) ==
LOC: ERS 15:28
DX: R07.89 Other chest pain (principal); F43.0 Acute stress reaction; I25.2 Old myocardial infarction; E78.00 Pure hypercholesterolemia, unspecified; I10 Essential (primary) hypertension; Z79.82 Long term (current) use of aspirin; Z79.899 Other long term (current) drug therapy
CPT/HCPCS: 0240U; 71045; 81001; 83605; 83735; 83880; 84484 ×2; 85379; 85610; 85730; 87086; 93005; 99285; 36415; 80053; 84443; 85025